=== PATIENT | male | born 1990 | race Caucasian/White ===

== ENCOUNTER 2016-09-14 03:30 | Emergency (ER) | payer OTHER ==
[2016-09-14 03:52] VITALS: BP 131/84; PULSE 87; TEMP 97.1; BMI 25.1
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
--- NOTE | 2016-09-14 04:01 | PDOC ---
*Physical Exam - Vital Signs Last Vital Signs Temp Pulse Resp BP Pulse Ox 97.1 F L 87 20 131/84 98 09/14/16 03:50 09/14/16 03:50 09/14/16 03:50 09/14/16 03:50 09/14/16 03:50 Medical Decision Making - Medical Decision Making 09/14/16 04:00 agree with care from ERIN Restrepo *DC/Admit/Observation/Transfer Diagnosis at time of Disposition: Knee contusion Qualifiers: Encounter type: initial encounter Laterality: unspecified laterality Qualified Code(s): S80.00XA - Contusion of unspecified knee, initial encounter - Discharge Dispostion Disposition: HOME Condition at time of disposition: Stable - Referrals Referrals: Perry Garcia MD [Staff Physician] - - Patient Instructions Printed Discharge Instructions: Contusion Additional Instructions: Rest Ice: 20 minutes on alternating with 20 minutes off for 48 hours while awake Take Tylenol/Motrin for pain as necessary Follow-up with the orthopedic surgeon listed on your discharge Follow-up with occupational health Return back to the emergency department for severe/persistent or worsening pains. - Post Discharge Activity
== END 2016-09-14 04:56 | disposition home or self-care (01) ==
LOC: JER 03:30
DX: S80.00XA Contusion of unspecified knee, initial encounter (principal); Y35.891A Legal intervention involving other specified means, law enforcement official injured, initial encounter; Y99.0 Civilian activity done for income or pay; W18.39XA Other fall on same level, initial encounter; Y93.89 Activity, other specified; Y92.89 Other specified places as the place of occurrence of the external cause
CPT/HCPCS: 73560-TC-LT; 73560-TC-RT; 99283-25

== ENCOUNTER 2016-10-20 04:17 | Emergency (ER) | payer OTHER ==
[2016-10-20 04:51] VITALS: BP 150/84; PULSE 84; TEMP 98.3; BMI 25.1
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
--- NOTE | 2016-10-20 05:10 | PDOC ---
*Physical Exam - Vital Signs Last Vital Signs Temp Pulse Resp BP Pulse Ox 98.3 F 84 14 150/84 97 10/20/16 04:49 10/20/16 04:49 10/20/16 04:49 10/20/16 04:49 10/20/16 04:49 Medical Decision Making - Medical Decision Making 10/20/16 05:09 agree with care from CARY Cano *DC/Admit/Observation/Transfer Diagnosis at time of Disposition: Exposure to blood or body fluid - Discharge Dispostion Disposition: HOME - Referrals - Patient Instructions Printed Discharge Instructions: How to Handle Body Fluid Exposure -- Non- Healthcare Worker (At Home, [facility] Additional Instructions: follow up in employee health - Post Discharge Activity Work/School Note: Back to Work
== END 2016-10-20 06:12 | disposition home or self-care (01) ==
LOC: JER 04:17
DX: Z77.21 Contact with and (suspected) exposure to potentially hazardous body fluids (principal); Y35.891A Legal intervention involving other specified means, law enforcement official injured, initial encounter; Y93.89 Activity, other specified; Y92.89 Other specified places as the place of occurrence of the external cause; Y99.0 Civilian activity done for income or pay
CPT/HCPCS: 99281-25

== ENCOUNTER 2017-06-01 04:29 | Emergency (ER) | payer OTHER ==
[2017-06-01 04:41] VITALS: BP 132/82; PULSE 78; TEMP 97.6; BMI 24.4
--- NOTE | 2017-06-01 05:00 | PDOC ---
*Physical Exam - Vital Signs Last Vital Signs Temp Pulse Resp BP Pulse Ox 97.6 F 78 20 132/82 98 06/01/17 04:38 06/01/17 04:38 06/01/17 04:38 06/01/17 04:38 06/01/17 04:38 Medical Decision Making - Medical Decision Making 06/01/17 05:00 agree with care from MOTORCYCLE FABRICATOR Miguel A *DC/Admit/Observation/Transfer Diagnosis at time of Disposition: Exposure to blood or body fluid - Discharge Dispostion Disposition: HOME Condition at time of disposition: Stable - Referrals - Patient Instructions Printed Discharge Instructions: How to Handle Body Fluid Exposure -- Non- Healthcare Worker (At Home, [facility] Additional Instructions: Return if any concerns for further evaluation. Wash hands which soap and warm water, dry thoroughly and moisten hand with lotion. Print Language: SPANISH - Post Discharge Activity Forms/Work/School Notes: Back to Work
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
== END 2017-06-01 05:30 | disposition home or self-care (01) ==
LOC: JER 04:29
DX: Z77.21 Contact with and (suspected) exposure to potentially hazardous body fluids (principal); Y35.811A Legal intervention involving manhandling, law enforcement official injured, initial encounter; Y93.89 Activity, other specified; Y92.89 Other specified places as the place of occurrence of the external cause
CPT/HCPCS: 99281-25

== ENCOUNTER 2017-06-10 05:58 | Emergency (ER) | payer OTHER ==
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
[2017-06-10 06:09] VITALS: TEMP 97.6; BMI 25.0
[2017-06-10] MEDS ORDERED: KETOROLAC TROMETHAMINE 15 MG/ML VIAL IM ONE (06:20)
[2017-06-10] MEDS ORDERED: KETOROLAC TROMETHAMINE 30 MG/1 ML VIAL ONE (06:27)
--- NOTE | 2017-06-10 07:19 | PDOC ---
*Physical Exam - Vital Signs Last Vital Signs Temp Pulse Resp BP Pulse Ox 97.6 F 78 20 136/87 98 06/10/17 06:08 06/10/17 06:08 06/10/17 06:08 06/10/17 06:08 06/10/17 06:08 - Physical Exam General Appearance: Yes: Appropriately Dressed ED Treatment Course - Medications Given in the ED: ED Medications Discontinued Medications Generic Name Dose Route Start Last Admin Trade Name Caitlyn PRN Reason Stop Dose Admin Ketorolac Tromethamine 30 mg 06/10/17 06:20 06/10/17 06:31 Toradol Injection - IM 06/10/17 06:21 30 mg ONCE ONE Administration Medical Decision Making - Medical Decision Making 06/10/17 07:15 No acute fracture or dislocation Pt provided with crutches and ortho follow up Findings the need for follow up and strict return instructions d/w pt. *DC/Admit/Observation/Transfer Diagnosis at time of Disposition: Knee pain Qualifiers: Chronicity: acute Laterality: left Qualified Code(s): M25.562 - Pain in left knee - Discharge Dispostion Disposition: HOME Admit: No - Referrals Referrals: Perry Garcia MD [Staff Physician] - - Patient Instructions Printed Discharge Instructions: DI for Knee Pain Additional Instructions: Ice affected need 20 minutes on 20 minutes off. Take 2 tabs Aleve twice a day for the next 3 days. Follow-up with orthopedics this week. Crutches at all times while ambulating until pain-free. Light duty until pain free or cleared by orthopedics. Return to the emergency department for any severe worsening symptoms or for any concerns. - Post Discharge Activity Forms/Work/School Notes: Back to Work
[2017-06-10 07:25] VITALS: BP 131/74; PULSE 75
== END 2017-06-10 07:27 | disposition home or self-care (01) ==
LOC: JER 05:58
PROC: 3E0233Z Introduction of Anti-inflammatory into Muscle, Percutaneous Approach (ICD-10-PCS; principal; 2017-06-10)
DX: S89.82XA Other specified injuries of left lower leg, initial encounter (principal); Y04.0XXA Assault by unarmed brawl or fight, initial encounter; Y35.811A Legal intervention involving manhandling, law enforcement official injured, initial encounter; Y93.89 Activity, other specified; Y92.89 Other specified places as the place of occurrence of the external cause; Y99.0 Civilian activity done for income or pay
CPT/HCPCS: 73562-TC-LT; 99283-25

== ENCOUNTER 2023-02-04 04:26 | Emergency (ER) | payer OTHER ==
[2023-02-04] MEDS ORDERED: IBUPROFEN 400 MG TABLET (FP) PO ONE ×2 (04:37→04:40)
[2023-02-04 04:45] VITALS: BP 137/93; PULSE 76; RESP 18; TEMP 99.3; BMI 25.4
== END 2023-02-04 05:43 | disposition home or self-care (01) ==
LOC: FER 04:26
DX: S63.501A Unspecified sprain of right wrist, initial encounter (principal); M79.641 Pain in right hand; Y04.0XXA Assault by unarmed brawl or fight, initial encounter
CPT/HCPCS: 73110-TC-RT-FY; 73130-TC-RT-FY; 99283-25